=== PATIENT | male | born 1980 | race Caucasian/White ===

== ENCOUNTER 2018-10-08 13:22 | Inpatient (IN) | payer SELFPAY ==
[~2018-10-08] VITALS: Ht 190.5 cm; Wt 97.6 kg
[2018-10-08] MEDS ORDERED: SOD CHLORIDE 0.9% 1,000 ML IV STA ×2 (13:31→14:50)
[2018-10-08] MEDS ORDERED: ONDANSETRON 4 MG INJ IV STA (13:48)
[2018-10-08] MEDS ORDERED: ASPIRIN 81 MG TAB PO ONE (15:00)
--- NOTE | 2018-10-08 16:49 | ERD ---
ER Documentation Chief Complaint Chief Complaint SVT VAGAL INTO NSR. HISTORY OF SVT. C/O WEAKNESS NOW. HPI This is a 38-year-old pleasant gentleman with a history of SVT who is visiting from [place]. The patient states that earlier today he noted palpitations and racing heart that felt similar to SVT in the past. He states that this was longer and slightly more intense than episodes in the past. He tried multiple episodes of vagal maneuvers with one episode of nonbloody nonbilious emesis. He denied any chest pain or chest pressure. Patient recently flew to the [facility] within the past 24 hours. He denies any calf pain or leg swelling, no history of DVT or pulmonary embolism, no pleuritic pain. Patient has complete resolution of symptoms upon arrival. ROS All systems reviewed and are negative except as per history of present illness. Medications Home Meds No Active Prescriptions or Reported Meds Allergies Allergies: Coded Allergies: No Known Allergy (Unverified , 10/08/18) PMhx/Soc History of Surgery: No Anesthesia Reaction: No Hx Neurological Disorder: No Hx Respiratory Disorders: No Hx Cardiac Disorders: Yes (Mitral valve prolapse) Hx Psychiatric Problems: No Hx Miscellaneous Medical Probl: No Hx Alcohol Use: Yes (every once in a while) Hx Substance Use: No Hx Tobacco Use: No Smoking Status: Never smoker FmHx Family History: No diabetes Physical Exam Vitals Vital Signs Date Temp Pulse Resp B/P (MAP) Pulse Ox O2 O2 Flow FiO2 Time Delivery Rate 10/08/18 73 16 127/83 98 Room Air 16:30 (98) 10/08/18 80 18 124/83 98 Room Air 15:30 (97) 10/08/18 90 16 128/89 98 Room Air 14:30 (102) 10/08/18 98.2 90 16 123/80 98 Room Air 13:30 (94) 10/08/18 98.2 86 16 123/80 98 13:27 (94) Physical Exam General: Well developed, well nourished, no acute distress Head: Normocephalic, atraumatic. Eyes: Pupils equally reactive, EOM intact ENT: Moist mucous membranes Neck: Supple, no lymphadenopathy Respiratory: Lungs clear bilaterally, no distress Cardiovascular: RRR, no murmurs, rubs, or gallops Abdominal: Soft, non-tender, non-distended, no peritoneal signs : Deferred MSK: No edema, no unilateral swelling, 5/5 strength Neurologic: Alert and oriented, moving all extremities, normal speech, no focal weakness, no cerebellar signs Skin: No rash Psych: Normal mood Result Diagram: 10/08/18 1348 10/08/18 1348 Results 24 hrs Laboratory Tests Test 10/08/18 13:48 10/08/18 16:55 White Blood Count 15.2 10^3/ul Red Blood Count 5.28 10^6/ul Hemoglobin 14.9 g/dl Hematocrit 45.2 % Mean Corpuscular Volume 85.6 fl Mean Corpuscular Hemoglobin 28.2 pg Mean Corpuscular Hemoglobin Concent 33.0 g/dl Red Cell Distribution Width 12.4 % Platelet Count 247 10^3/UL Mean Platelet Volume 10.3 fl Immature Granulocytes % 0.500 % Neutrophils % 81.9 % Lymphocytes % 10.4 % Monocytes % 6.9 % Eosinophils % 0.1 % Basophils % 0.2 % Nucleated Red Blood Cells % 0.0 /100WBC Immature Granulocytes # 0.080 10^3/ul Neutrophils # 12.5 10^3/ul Lymphocytes # 1.6 10^3/ul Monocytes # 1.1 10^3/ul Eosinophils # 0.0 10^3/ul Basophils # 0.0 10^3/ul Nucleated Red Blood Cells # 0.0 10^3/ul Sodium Level 144 mmol/L Potassium Level 3.8 mmol/L Chloride Level 107 mmol/L Carbon Dioxide Level 25 mmol/L Anion Gap 12 Blood Urea Nitrogen 15 mg/dl Creatinine 1.56 mg/dl Est Glomerular Filtrat Rate mL/min 50 mL/min Glucose Level 124 mg/dl Calcium Level 9.7 mg/dl Magnesium Level 1.8 mg/dl Troponin I 0.193 ng/ml 1.410 ng/ml Current Medications Medications Dose Sig/Shira Start Time Status Last (Trade) Ordered Route PRN Stop Time Admin Dose Reason Admin Sodium 1,000 ml @ Q1H STAT 10/08/18 DC 10/08/18 Chloride 1,000 mls/hr IV 13:31 13:57 10/08/18 14:30 Ondansetron 4 mg ONCE STAT 10/08/18 DC 10/08/18 HCl (Zofran IV 13:48 13:57 Inj) 10/08/18 13:49 Aspirin 162 mg ONCE ONCE 10/08/18 DC 10/08/18 (Aspirin) PO 15:00 15:49 10/08/18 15:01 Sodium 1,000 ml @ Q1H STAT 10/08/18 DC 10/08/18 Chloride 1,000 mls/hr IV 14:50 15:48 10/08/18 15:49 Ondansetron 4 mg ER BRIDGE 10/08/18 HCl (Zofran PRN IV 18:30 Inj) NAUSEA/VOMITI 10/09/18 18:29 NG 650 mg ER BRIDGE 10/08/18 Acetaminophen PRN PO 18:30 (Tylenol .MILD PAIN 10/09/18 18:29 Tab) 1-3 OR TEMP Procedures/MDM EKG, MONITORS, & DIAGNOSTIC IMAGING: EKG: I reviewed and interpreted a 12-lead EKG. Rhythm: Normal sinus rhythm ST Changes: No contiguous ST segment elevations T waves: No contiguous T wave inversions Impression: [No evidence of acute cardiac ischemia] EKG: I reviewed and interpreted a 12-lead EKG. Rhythm: Normal sinus rhythm ST Changes: No contiguous ST segment elevations T waves: No contiguous T wave inversions Impression: [No evidence of acute cardiac ischemia] LAB INTERPRETATION: I reviewed the laboratory testing and it shows slight troponin elevation MEDICAL DECISION MAKING: Patient's presentation is consistent with likely acute SVT with spontaneous resolution status post vagal maneuvers. Because of the patient's intensity laboratory testing including lytes and troponin were ordered to rule out en dorgan dysfunction. While the patient recently flew in from [place] the patient does not have any si gns or symptoms concerning for DVT. He is a known history of SVT and symptoms are very similar to this. I do not believe this consistent with pulmonary embolism or DVT. No indication for d-dimer or CTA. ER COURSE: * Patient's troponin is elevated likely secondary to demand ischemia. I discussed with the on-call furnace fitter Dr. Simon. We discussed the case as well as presentation. She does not feel strongly that the patient requires admission. Patient had no chest pain no exertional symptoms and again this seems inconsistent with acute coronary syndrome or plaque rupture. We have di scussed serial troponin in the emergency room setting. If trending down the patient can be safely discharged. * I did discuss with the patient possibility of initiation of beta-evan or calcium channel evan. The patient would like to avoid this given he is only visiting the [place] for approximately 6 days. He will follow-up with his primary doctor upon return to [place]. * Patient given 2 L of saline given mild dehydration. This is likely secondary to outside heat, recent travel. * The patient second troponin has increased. The patient remains asymptomatic. Repeat EKG is unchanged. The patient will be admitted. Dr. Beck to bedside. CONSULTATION: Cardiology: Dr. Beck DISPOSITION PLAN: Telemetry admission Accepting care team and consultations: I discussed the current laboratory data, diagnostic imaging and emergency care provided. Admitting team: Dr. Ashley sanchez Admitting team indication: Insurance directed Departure Diagnosis: Primary Impression: Acute renal insufficiency Additional Impressions: Non-ST elevation myocardial infarction (NSTEMI) SVT (supraventricular tachycardia) Condition: Stable TITO RICHARDSON MD Oct 08, 2018 16:49
--- NOTE | 2018-10-08 18:16 | CONS ---
Assessment/Plan Assessment/Plan Hospital Course (Demo Recall) 38 yo with h/o SVT and mitral valve prolapse with regurgitation, presents with an acute episode of palpitations that lasted 2 hours this am. Palpitations have resolved, but patient has renal insufficiency, leukocytosis, and a significantly elevated troponin, which are of unclear etiology. Impression: Palpitations, resolved Troponin elevation -- unclear etiology, PE vs acute coronary syndrome vs demand mediated Renal insufficiency, unclear if acute or chronic Leukocytosis, unclear etiology MVP with regurgitation h/o SVT Recommendations: Trend troponin Echo in am D-dimer Lower extremity doppler, consider ct of the chest to r/o PE but would hesitate due to renal abnormality Hydration Consultation Date/Type/Reason Admit Date/Time Date of Consultation: Oct 08, 2018 Type of Consult Cardiology Reason for Consultation palpitations Requesting Provider: TITO RICHARDSON MD Date/Time of Note DATE: 10/08/18 TIME: 18:04 Hx of Present Illness 38 yo from the with h/o SVT and mitral valve prolapse with regurgitation pre sents to the ED after palpitations that lasted for over two hours. He has h/o SVT which responds well to vagal maneuvers, but this episode did not. Palpitations were associated with lightheadedness and tingling and dyspnea, and symptoms were somewhat worse than his typical SVT episodes. Bystanders were concerned that he looked pale and ill so paramedics were called. Upon their arrival, the palpitations were gone but he still felt quite tired and was taken to the ED. He's had no SVT documented in the ED. At present he feels for the most part well, no pain, no dyspnea, just slight fatigue. He took a flight from the and landed last night at 7 pm. 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 The palpitations started around 9:30 this morning. He had two beers last night, no additional alcohol. He states he is followed by a specialist in the [place] for mitral valve prolapse and has been told that his condition has gotten more significant, but no imminent need for surgery, he has been told perhaps 10-20 years from now. He has no history of kidney issues. Normally he is quite active and enjoys mountain biking. No family history of premature CAD. Not a smoker, social alcohol, no drugs. Constitutional: no complaints Eyes: no complaints ENT: no complaints Respiratory: shortness of breath Cardiovascular: no complaints, palpitations Gastrointestinal: no complaints Genitourinary: no complaints Musculoskeletal: no complaints Skin: no complaints Neurologic: no complaints Endocrine: no complaints Lymphatic: no complaints Psychological: no complaints Immunologic: no complaints Past Medical History Medical History: other (SVT, mitral valve prolapse with regurgitation) Home Meds No Active Prescriptions or Reported Meds Allergies: Coded Allergies: No Known Allergy (Unverified , 10/08/18) Past Surgical History Past Surgical Hx: no surgical history Family History Significant Family History: no pertinent family hx Social History Alcohol Use: occasionally Smoking Status: Never smoker Drug Use: none Exam/Review of Systems Vital Signs Vitals Vital Signs Date Temp Pulse Resp B/P (MAP) Pulse Ox O2 O2 Flow FiO2 Time Delivery Rate 10/08/18 73 16 127/83 98 Room Air 16:30 (98) 10/08/18 98.2 13:30 Exam Constitutional: alert, oriented, well developed Psych: nl mood/affect Head: normocephalic, atraumatic Eyes: nl conjunctiva, EOMI, nl lids, nl sclera ENMT: nl external ears & nose, nl lips & teeth, nl nasal mucosa & septum Neck: supple; No jvd, No bruits Respiratory: clear to auscultation, normal air movement Cardiovascular: regular rate and rhythm, nl pulses, murmurs/extra sounds (2-3/6 systolic murmur heard at the apex) Gastrointestinal: soft, nl liver, spleen, non-tender Musculoskeletal: nl extremities to inspection Extremities: normal pulses; No calf tenderness, No edema Neurological: nl mental status, nl speech Skin: nl turgor; No rash or lesions Labs Result Diagram: 10/08/18 1348 10/08/18 1348 Results 24hrs Laboratory Tests Test 10/08/18 13:48 10/08/18 16:55 White Blood Count 15.2 H Red Blood Count 5.28 Hemoglobin 14.9 Hematocrit 45.2 Mean Corpuscular Volume 85.6 Mean Corpuscular Hemoglobin 28.2 L Mean Corpuscular Hemoglobin Concent 33.0 Red Cell Distribution Width 12.4 Platelet Count 247 Mean Platelet Volume 10.3 Immature Granulocytes % 0.500 H Neutrophils % 81.9 H Lymphocytes % 10.4 L Monocytes % 6.9 Eosinophils % 0.1 Basophils % 0.2 Nucleated Red Blood Cells % 0.0 Immature Granulocytes # 0.080 H Neutrophils # 12.5 H Lymphocytes # 1.6 Monocytes # 1.1 H Eosinophils # 0.0 Basophils # 0.0 Nucleated Red Blood Cells # 0.0 Sodium Level 144 Potassium Level 3.8 Chloride Level 107 Carbon Dioxide Level 25 Anion Gap 12 Blood Urea Nitrogen 15 Creatinine 1.56 H Est Glomerular Filtrat Rate mL/min 50 L Glucose Level 124 Calcium Level 9.7 Magnesium Level 1.8 Troponin I 0.193 *H 1.410 *H Imaging Imaging EKG shows NSR at 73 bpm, nonspecific T wave changes YASSINE SANCHEZ Oct 08, 2018 18:14
--- NOTE | 2018-10-08 18:26 | HP ---
Date/Time of Note Date/Time of Note DATE: 10/08/18 TIME: 18:23 Assessment/Plan VTE Prophylaxis SCD applied (from Nsg): Yes Pharmacological prophylaxis: heparin Lines/Catheters IV Catheter Type (from Nrsg): Saline Lock Assessment/Plan Hospital Course This is a 38-year-old male with a history of recurrent SVT who presents with ano ther episode of likely SVT now resolved and also found to be with LUCAS Likely SVT: -Unclear exactly what arrhythmia he suffered -We will monitor on telemetry -We will defer medical therapy to Dr. Simon -TTE is pending LUCAS: -He has been bolused fluids so we will recheck creatinine in the a.m. If normalized will confirm diagnosis of prerenal azotemia. If creatinine remains elevated will work-up further Result Diagram: 10/08/18 1348 10/08/18 1348 Results 24hrs Laboratory Tests Test 10/08/18 13:48 10/08/18 16:55 White Blood Count 15.2 H Red Blood Count 5.28 Hemoglobin 14.9 Hematocrit 45.2 Mean Corpuscular Volume 85.6 Mean Corpuscular Hemoglobin 28.2 L Mean Corpuscular Hemoglobin Concent 33.0 Red Cell Distribution Width 12.4 Platelet Count 247 Mean Platelet Volume 10.3 Immature Granulocytes % 0.500 H Neutrophils % 81.9 H Lymphocytes % 10.4 L Monocytes % 6.9 Eosinophils % 0.1 Basophils % 0.2 Nucleated Red Blood Cells % 0.0 Immature Granulocytes # 0.080 H Neutrophils # 12.5 H Lymphocytes # 1.6 Monocytes # 1.1 H Eosinophils # 0.0 Basophils # 0.0 Nucleated Red Blood Cells # 0.0 Sodium Level 144 Potassium Level 3.8 Chloride Level 107 Carbon Dioxide Level 25 Anion Gap 12 Blood Urea Nitrogen 15 Creatinine 1.56 H Est Glomerular Filtrat Rate mL/min 50 L Glucose Level 124 Calcium Level 9.7 Magnesium Level 1.8 Troponin I 0.193 *H 1.410 *H HPI/ROS Admit Date/Time Admit Date/Time Hx of Present Illness This is a 38-year-old male with a history of recurrent SVT who presents with palpitations and dizziness She is visiting from [place] just arrived last night. He has a known history of recurrent SVT for which he normally employs vagal maneuvers. Has never been on medication for this. Today have 1 of his typical episodes where he feels palpitations lightheadedness and a bit of nausea. Symptoms did not resolve as they do normally so he called 911. Symptoms had resolved by the time he arrived in the ER. Here he is in normal sinus rhythm and feels back to himself. He has been found to have an elevated creatinine but denies any history of dehydration. Does state that he was quite hot today and he is not used to the heat here in [place] has been urinating normally and taking appropriate p.o. ROS Constitutional: no complaints, improved Eyes: no complaints ENT: no complaints Respiratory: no complaints Cardiovascular: no complaints Gastrointestinal: no complaints Genitourinary: no complaints Musculoskeletal: no complaints Skin: no complaints Neurologic: no complaints Endocrine: no complaints Lymphatic: no complaints Psychological: no complaints, nl mood/affect Immunologic: no complaints PMH/Family/Social Past Medical History Recurrent SVT Medications Current Medications Ondansetron HCl (Zofran Inj) 4 mg ER BRIDGE PRN IV NAUSEA/VOMITING; Start 10/08/18 at 18:30; Stop 10/09/18 at 18:29 Acetaminophen (Tylenol Tab) 650 mg ER BRIDGE PRN PO .MILD PAIN 1-3 OR TEMP; Start 10/08/18 at 18:30; Stop 10/09/18 at 18:29 Coded Allergies: No Known Allergy (Unverified , 10/08/18) Past Surgical History Past Surgical Hx: no surgical history Family History Significant Family History: no pertinent family hx Social History Alcohol Use: none Smoking Status: Never smoker Drug Use: none Exam/Review of Systems Vital Signs Vitals Vital Signs Date Temp Pulse Resp B/P (MAP) Pulse Ox O2 O2 Flow FiO2 Time Delivery Rate 10/08/18 73 16 127/83 98 Room Air 16:30 (98) 10/08/18 98.2 13:30 Exam Constitutional: alert, oriented, well developed Psych: no complaints, nl mood/affect Head: normocephalic, atraumatic Eyes: nl conjunctiva, EOMI, nl lids, nl sclera, PERRL ENMT: nl external ears & nose, nl lips & teeth, nl nasal mucosa & septum Neck: supple, non-tender Respiratory: clear to auscultation, normal air movement Cardiovascular: regular rate and rhythm, nl pulses Gastrointestinal: soft, nl liver, spleen, non-tender Musculoskeletal: nl extremities to inspection Extremities: normal pulses 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
[2018-10-08] MEDS ORDERED: NACL 0.9% 3 ML SYG IV SCH (18:30)
[2018-10-08] MEDS ORDERED: ACETAMINOPHEN 325 MG TAB PO PRN (18:30)
[2018-10-08] MEDS ORDERED: ONDANSETRON 4 MG INJ IV PRN (18:30)
[2018-10-08] MEDS ORDERED: HYDROCODONE/APAP (5/325) TAB PO PRN (18:30)
[2018-10-08 21:12] VITALS: Ht 190.5 cm; Wt 97.6 kg
[2018-10-08 21:48] VITALS: BP 121/81; PULSE 72; RESP 18
[2018-10-08 23:29] VITALS: BP 126/77; PULSE 82; RESP 18
[2018-10-09] MEDS ORDERED: morphine 2 MG INJ IV PRN (01:00)
[2018-10-09] MEDS ORDERED: HEPARIN 1000 UNITS/ML 10 ML INJ IV ONE (01:00)
[2018-10-09] MEDS ORDERED: NITROGLYCERIN (SL) 0.4 MG TAB SL PRN (01:00)
[2018-10-09] MEDS ORDERED: HEPARIN 25000 UNITS/250 ML 250 ML IV SCH (01:00)
[2018-10-09] MEDS ORDERED: HEPARIN 1000 UNITS/ML 10 ML INJ IV PRN (01:00)
[2018-10-09 04:25] VITALS: BP 122/68; PULSE 72; RESP 18
[2018-10-09 07:04] VITALS: BP 129/75; PULSE 75; RESP 18
--- NOTE | 2018-10-09 09:15 | RADRPT ---
Echocardiogram Report Patient Name: Susan PINON ID: [id number] : 1980 (38y 5m)Study Date: 10/09/2018 7:05:11 AM Gender: MAccession #: [id number] Tech: Maggie Lira MELBA Location: 606 Ref.Physician: UMM SANCHEZ Height(Cm): BSA: Weight(Kg): Quality: AdequateOrder Physician: UMM SANCHEZ Account #: Procedures: Echocardiographic Report: Transthoracic echocardiogram with complete 2D, M-Mode, and doppler examination. Indications: Palpitations, elevated troponin, h/o MVP with regurgitation. Measurements: 2D/M Mode Doppler Measurement Value Normal Range Measurement Value Normal Range LVIDd 2D 5.2 [ 4.2 - 5.8 ] cm AV Peak Jasen 1.2 [ 100.0 - 170.0 ] cm/sec LVIDs 2D 2.9 [ 2.5 - 4.0 ] cm AV Peak PG 6.0 [ 2.0 - 9.0 ] mmHg LVPWd 2D 1.1 [ 0.6 - 1.0 ] cm LVOT Peak Jasen 0.9 [ 70.0 - 110.0 ] cm/sec IVSd 2D 1.1 [ 0.6 - 1.0 ] cm LVOT Peak PG 3.0 [ 2.0 - 6.0 ] mmHg AoR Diam 2D 3.3 [ 2.6 - 3.4 ] cm MV E Peak Jasen 0.7 [ 60.0 - 130.0 ] cm/sec EDV 2D 131.0 [ 62.0 - 150.0 ] ml MV A Peak Jasen 0.5 [ 100.0 - 120.0 ] cm/sec ESV 2D 33.0 [ 21.0 - 61.0 ] ml MV E/A 1.4 [ 0.8 - 1.5 ] ratio EF 2D 74.8 [ 52.0 - 72.0 ] percent MV Decel Time 151 [ 104 - 258 ] msec LA Dimen 2D 3.4 [ 3.0 - 4.0 ] cm Lat E` Jasen 0.1 [ 10.0 - 15.0 ] cm/sec Lateral E/E` 4.6 [ 1.0 - 2.0 ] ratio Med E` Jasen 0.1 cm/sec MV E/A 1.4 [ 0.8 - 1.5 ] ratio Findings: Left Ventricle: Normal left ventricular systolic function. Normal left ventricular cavity size. Mild concentric left ventricular hypertrophy. Ejection fraction is visually estimated at 70 %. Tissue Doppler/Mitral Doppler indices are within normal limits. Right Ventricle: Normal right ventricular size. Normal right ventricular systolic function. Left Atrium: The left atrium is normal in size. Right Atrium: The right atrium is normal in size. Mitral Valve: Mitral valve leaflets appear mildly thickened. Mild mitral valve prolapse involving the anterior mitral leaflet. Mild mitral valve prolapse involving the posterior mitral leaflet. Mild to moderate mitral valve regurgitation. Aortic Valve: Normal appearance of the aortic valve. No significant aortic stenosis or insufficiency. Tricuspid Valve: Normal appearance and function of the tricuspid valve with trace physiologic regurgitation. Normal right ventricular systolic pressure. Pulmonic Valve: Pulmonic valve not well visualized. Pericardium: Normal pericardium with no significant pericardial effusion. Aorta: Normal aortic root. IVC: Normal size and normal respiratory collapse consistent with normal right atrial pressure. Conclusions: Fair quality images. Normal left ventricular systolic and diastolic function without obvious wall motion abnormalities. Thickening and prolapse of both the anterior and posterior mitral valve leaflets with mild to moderate regurgitation. Trace tricuspid regurgitation. Electronically Signed By: Umm Sanchez 2018-10-09 09:13:59 PDT
[2018-10-09] MEDS ORDERED: METOPROLOL 50 MG TAB PO SCH (09:30)
--- NOTE | 2018-10-09 10:36 | CONS ---
Assessment/Plan Assessment/Plan Hospital Course (Demo Recall) 38 yo with h/o SVT and mitral valve prolapse with regurgitation, presents with an acute episode of palpitations that lasted 2 hours this am. Palpitations have resolved, but troponins kamilla significantly. Echo with MVP and mild-moderate MR, and no wall motion abnormalities. Impression: Palpitations, resolved Troponin elevation. Could be simply demand mediated from the SVT. PE less likely with normal D dimer. However, with troponin elevation, would want to evaluate coronaries with CT coronary angiogram Renal insufficiency, improved Leukocytosis, unclear etiology MVP with mild-moderate regurgitation h/o SVT Recommendations: CT coronary angiography to evaluate for significant coronary disease. If that is unremarkable then he can be dc'ed.. Follow up regarding MR/MVP in the [place] Consultation Date/Type/Reason Admit Date/Time Oct 08, 2018 at 18:05 Initial Consult Date 10/08/18 Type of Consult Cardiology Requesting Provider: TITO RICHARDSON MD Date/Time of Note DATE: 10/09/18 TIME: 10:29 24 HR Interval Summary Free Text/Dictation Patient feeling well this am, no chest pain, no palpitations. Constitutional: no complaints, improved Exam/Review of Systems Vital Signs Vitals Vital Signs Date Temp Pulse Resp B/P (MAP) Pulse Ox O2 O2 Flow FiO2 Time Delivery Rate 10/09/18 97.9 75 18 129/75 96 07:04 (93) 10/08/18 Room Air 20:00 Intake and Output 10/08/18 10/08/18 10/09/18 1515:00 23:00 07:00 OutputOutput Total 1000 ml BalanceBalance -1000 ml Exam Constitutional: alert, oriented, well developed Psych: nl mood/affect Head: normocephalic, atraumatic Eyes: nl conjunctiva, EOMI, nl lids, nl sclera ENMT: nl external ears & nose, nl lips & teeth, nl nasal mucosa & septum Neck: supple, non-tender Respiratory: clear to auscultation, normal air movement Cardiovascular: regular rate and rhythm, nl pulses, murmurs/extra sounds (systolic murmur at apex) Gastrointestinal: soft, nl liver, spleen, non-tender Musculoskeletal: nl extremities to inspection Extremities: normal pulses Neurological: nl mental status, nl speech Skin: No rash or lesions Lymph: nl lymph nodes Labs Result Diagram: 10/09/18 0114 10/09/18 0514 Results 24hrs Laboratory Tests Test 10/08/18 13:48 10/08/18 16:52 10/08/18 16:55 10/08/18 23:38 White Blood Count 15.2 H Red Blood Count 5.28 Hemoglobin 14.9 Hematocrit 45.2 Mean Corpuscular 85.6 Volume Mean Corpuscular 28.2 L Hemoglobin Mean Corpuscular 33.0 Hemoglobin Concent Red Cell 12.4 Distribution Width Platelet Count 247 Mean Platelet Volume 10.3 Immature 0.500 H Granulocytes % Neutrophils % 81.9 H Lymphocytes % 10.4 L Monocytes % 6.9 Eosinophils % 0.1 Basophils % 0.2 Nucleated Red Blood 0.0 Cells % Immature 0.080 H Granulocytes # Neutrophils # 12.5 H Lymphocytes # 1.6 Monocytes # 1.1 H Eosinophils # 0.0 Basophils # 0.0 Nucleated Red Blood 0.0 Cells # D-Dimer 299.46 D-Dimer Comment Sodium Level 144 142 Potassium Level 3.8 4.7 Chloride Level 107 109 Carbon Dioxide Level 25 25 Anion Gap 12 8 Blood Urea Nitrogen 15 15 Creatinine 1.56 H 1.24 Est Glomerular 50 L > 60 Filtrat Rate mL/min Glucose Level 124 106 Calcium Level 9.7 8.7 Magnesium Level 1.8 Troponin I 0.193 *H 1.410 *H 2.440 *H Creatine Kinase 276 H Creatine Kinase 4.9 Index Creatinine Kinase MB 13.50 H (Mass) Test 10/09/18 01:14 10/09/18 05:14 10/09/18 07:57 White Blood Count 10.3 # Red Blood Count 4.63 L Hemoglobin 13.0 L Hematocrit 39.3 L Mean Corpuscular 84.9 Volume Mean Corpuscular 28.1 L Hemoglobin Mean Corpuscular 33.1 Hemoglobin Concent Red Cell 12.8 Distribution Width Platelet Count 230 Mean Platelet Volume 10.2 Immature 0.300 Granulocytes % Neutrophils % 72.7 Lymphocytes % 17.1 Monocytes % 9.4 Eosinophils % 0.2 Basophils % 0.3 Nucleated Red Blood 0.0 Cells % Immature 0.030 Granulocytes # Neutrophils # 7.5 Lymphocytes # 1.8 Monocytes # 1.0 H Eosinophils # 0.0 Basophils # 0.0 Nucleated Red Blood 0.0 Cells # Prothrombin Time 13.7 Prothrombin Time 1.1 Ratio INR International 1.04 Normalized Ratio Activated 27.0 55.0 H Partial Thromboplast Time Sodium Level 144 Potassium Level 4.2 Chloride Level 108 Carbon Dioxide Level 27 Anion Gap 9 Blood Urea Nitrogen 16 Creatinine 1.07 Est Glomerular > 60 Filtrat Rate mL/min Glucose Level 98 Hemoglobin A1c 5.4 Calcium Level 9.0 Creatine Kinase 285 H Creatine Kinase 4.8 Index Creatinine Kinase MB 13.80 H (Mass) Troponin I 1.960 *H Thyroid Stimulating 0.889 Hormone (TSH) Imaging Imaging Echo this am shows normal lv function, MVP of both mitral leaflets and mild- moderate regurgitation, normal LV and left atrium sizes Medications Medications Current Medications Ondansetron HCl (Zofran Inj) 4 mg ER BRIDGE PRN IV NAUSEA/VOMITING; Start 10/08/18 at 18:30; Stop 10/09/18 at 18:29 Acetaminophen (Tylenol Tab) 650 mg ER BRIDGE PRN PO .MILD PAIN 1-3 OR TEMP; Start 10/08/18 at 18:30; Stop 10/09/18 at 18:29 IV Flush (NS 3 ml) 3 ml PER PROTOCOL IV ; Start 10/08/18 at 18:30 Acetaminophen/ Hydrocodone Bitart ([place] (5/325)) 1 tab Q6H PRN PO .MOD PAIN 4- 6; Start 10/08/18 at 18:30 Nitroglycerin (Nitroglycerin (Sl Tab) 0.4 Mg) 1 tab Q5M PRN SL ANGINA; Start 10/09/18 at 01:00 Morphine Sulfate (morphine) 2 mg Q4H PRN IV SEVERE PAIN LEVEL 7-10; Start 10/09 at 01:00 Metoprolol Tartrate (Lopressor) 50 mg ONCE PO ; Start 10/09/18 at 09:30; Stop 10/11/18 at 09:29 YASSINE SANCHEZ Oct 09, 2018 10:36
[2018-10-09 11:21] VITALS: BP 135/62; RESP 18
--- NOTE | 2018-10-09 12:09 | DS ---
Date/Time of Note Date/Time of Note DATE: 10/09/18 TIME: 12:01 Discharge Summary Admission/Discharge Info Admit Date/Time Oct 08, 2018 at 18:05 Discharge Date/Time Discharge Diagnosis 1. Paroxysmal supraventricular tachycardia, sinus now, follow up with cardiology 2. Elevated tropon in, considered tachycardia related, CT coronary angiography... 3. Mitral valve prolapse with MR, follow up with cardiology 4. Leukocytosis, stress-induced, resolved 5. Acute kidney injury, resolved Patient Condition: Stable Hospital Course 38 yo from the with h/o SVT and mitral valve prolapse with regurgitation p resents to the ED after palpitations that lasted for over two hours. He has h/o SVT which responds well to vagal maneuvers, but this episode did not. Palpitations were associated with lightheadedness and tingling and dyspnea, and symptoms were somewhat worse than his typical SVT episodes. Bystanders were concerned that he looked pale and ill so paramedics were called. Upon their arrival, the palpitations were gone but he still felt quite tired and was taken to the ED. He's had no SVT documented in the ED. At present he feels for the most part well, no pain, no dyspnea, just slight fatigue. He took a flight from the and landed at the night of 10/07/2018. 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 The palpitations started around 9:30 on 10/08/2018. He had two beers the night before yesterday, no additional alcohol. He denies drug use. Patient is totally asymptomatic today. With the concern of elevated troponin up to 2.44, CT coronary angiography is done today that ....... BUN/Cr were 15/1.56 on admission that improves to 15/1.24 today with IVF rehydration. Home Meds No Active Prescriptions or Reported Meds Primary Care Provider Care Physician No Primary Pending Labs Laboratory Tests Test 10/08/18 13:48 10/08/18 16:52 10/08/18 16:55 10/08/18 23:38 White Blood 15.2 Count 10^3/ul (4.8-10 .8) Red Blood 5.28 Count 10^6/ul (4.70-6 .10) Hemoglobin 14.9 g/dl (14.0-18.0 ) Hematocrit 45.2 % (42.0-52.0) Mean 85.6 Corpuscular fl (82.0-101.0) Volume Mean 28.2 Corpuscular pg (29.0-33.0) Hemoglobin Mean 33.0 Corpuscular g/dl (32.0-37.0 Hemoglobin Conc ) ent Red Cell 12.4 Distribution % (11.5-14.5) Width Platelet Count 247 10^3/UL (140-41 5) Mean Platelet 10.3 Volume fl (7.4-10.4) Immature 0.500 Granulocytes % % (0.001-0.429) Neutrophils % 81.9 % (39.0-77.0) Lymphocytes % 10.4 % (15.0-51.0) Monocytes % 6.9 % (0.0-11.0) Eosinophils % 0.1 % (0.0-7.0) Basophils % 0.2 % (0.0-2.0) Nucleated Red 0.0 Blood Cells % /100WBC (0.0-0. 0) Immature 0.080 Granulocytes # 10^3/ul (0.0-0. 031) Neutrophils # 12.5 10^3/ul (1.6-7. 5) Lymphocytes # 1.6 10^3/ul (0.8-2. 9) Monocytes # 1.1 10^3/ul (0.3-0. 9) Eosinophils # 0.0 10^3/ul (0.0-0. 5) Basophils # 0.0 10^3/ul (0.0-0. 1) Nucleated Red 0.0 Blood Cells # 10^3/ul (0.0-0. 0) D-Dimer 299.46 ng/ml (<460) D-Dimer Comment Sodium Level 144 142 mmol/L (135-144 mmol/L (135-14 ) 4) Potassium 3.8 4.7 Level mmol/L (3.5-5.1 mmol/L (3.5-5. ) 1) Chloride Level 107 109 mmol/L (97-110) mmol/L (97-110 ) Carbon Dioxide 25 25 Level mmol/L (21-31) mmol/L (21-31) Anion Gap 12 (5-13) 8 (5-13) Blood Urea 15 mg/dl (7-20) 15 Nitrogen mg/dl (7-20) Creatinine 1.56 1.24 mg/dl (0.61-1.2 mg/dl (0.61-1. 4) 24) Est Glomerular 50 mL/min (>60) > 60 Filtrat mL/min (>60) Rate mL/min Glucose Level 124 106 mg/dl (70-220) mg/dl (70-220) Calcium Level 9.7 8.7 mg/dl (8.4-10.2 mg/dl (8.4-10. ) 2) Magnesium 1.8 Level mg/dl (1.7-2.5) Troponin I 0.193 1.410 2.440 ng/ml (0.000-0. ng/ml (0.000-0 ng/ml (0.000-0 120) .120) .120) Creatine 276 Kinase IU/L (23-200) Creatine Kinase 4.9 Index Creatinine 13.50 Kinase MB ng/ml (0.0-2.4 (Mass) ) Test 10/09/18 01:14 10/09/18 05:14 10/09/18 07:57 White Blood 10.3 Count 10^3/ul (4.8-10 .8) Red Blood 4.63 Count 10^6/ul (4.70-6 .10) Hemoglobin 13.0 g/dl (14.0-18.0 ) Hematocrit 39.3 % (42.0-52.0) Mean 84.9 Corpuscular fl (82.0-101.0) Volume Mean 28.1 Corpuscular pg (29.0-33.0) Hemoglobin Mean 33.1 Corpuscular g/dl (32.0-37.0 Hemoglobin Conc ) ent Red Cell 12.8 Distribution % (11.5-14.5) Width Platelet Count 230 10^3/UL (140-41 5) Mean Platelet 10.2 Volume fl (7.4-10.4) Immature 0.300 Granulocytes % % (0.001-0.429) Neutrophils % 72.7 % (39.0-77.0) Lymphocytes % 17.1 % (15.0-51.0) Monocytes % 9.4 % (0.0-11.0) Eosinophils % 0.2 % (0.0-7.0) Basophils % 0.3 % (0.0-2.0) Nucleated Red 0.0 Blood Cells % /100WBC (0.0-0. 0) Immature 0.030 Granulocytes # 10^3/ul (0.0-0. 031) Neutrophils # 7.5 10^3/ul (1.6-7. 5) Lymphocytes # 1.8 10^3/ul (0.8-2. 9) Monocytes # 1.0 10^3/ul (0.3-0. 9) Eosinophils # 0.0 10^3/ul (0.0-0. 5) Basophils # 0.0 10^3/ul (0.0-0. 1) Nucleated Red 0.0 Blood Cells # 10^3/ul (0.0-0. 0) Prothrombin 13.7 Time Sec (11.9-14.9) Prothrombin 1.1 Time Ratio INR 1.04 International Normalized Rati o Activated 27.0 55.0 Partial Thrombo Sec (23.0-35.0) Sec (23.0-35.0 plast Time ) Sodium Level 144 mmol/L (135-14 4) Potassium 4.2 Level mmol/L (3.5-5. 1) Chloride Level 108 mmol/L (97-110 ) Carbon Dioxide 27 Level mmol/L (21-31) Anion Gap 9 (5-13) Blood Urea 16 Nitrogen mg/dl (7-20) Creatinine 1.07 mg/dl (0.61-1. 24) Est Glomerular > 60 Filtrat mL/min (>60) Rate mL/min Glucose Level 98 mg/dl (70-220) Hemoglobin A1c 5.4 % (0-5.9) Calcium Level 9.0 mg/dl (8.4-10. 2) Creatine 285 Kinase IU/L (23-200) Creatine Kinase 4.8 Index Creatinine 13.80 Kinase MB ng/ml (0.0-2.4 (Mass) ) Troponin I 1.960 ng/ml (0.000-0 .120) Thyroid 0.889 Stimulating MIU/L (0.465-4 Hormone (TSH) .680) ASHWINI ALTMAN MD Oct 09, 2018 12:09
[2018-10-09] MEDS ORDERED: NITROGLYCERIN AEROSOL (4.9 GM) ONE (13:54)
[2018-10-09] MEDS ORDERED: METOPROLOL 5 MG INJ ONE (13:54)
[2018-10-09] MEDS ORDERED: IOHEXOL 100 ML ONE (14:46)
[2018-10-09] MEDS ORDERED: SOD CHLORIDE 0.9% 100 ML ONE (14:46)
[2018-10-09 15:27] VITALS: BP 122/76; PULSE 66; RESP 16
== END 2018-10-09 19:50 | disposition home or self-care (01) | DRG 281 ==
LOC: E/R 13:22 → SUATTDRO 17:43 → 6WM 18:05
PROVIDERS: ADMIT Internal Medicine; ATTEND Internal Medicine
DX: I47.1 Supraventricular tachycardia (principal); I21.4 Non-ST elevation (NSTEMI) myocardial infarction; N17.9 Acute kidney failure, unspecified; I47.2 Ventricular tachycardia; I34.1 Nonrheumatic mitral (valve) prolapse
CPT/HCPCS: 36415; 75574; 80048; 82550; 82553; 83036; 83735; 84443; 84484; 85025; 85378; 85610; 85730; 93005; 93306; 93970; 96361; 96374; J1644; J2405; J7030; Q9967